=== PATIENT | female | born 1980 | race Caucasian/White ===

== ENCOUNTER 2016-09-18 18:31 | Emergency (ER) | payer MEDICAID ==
--- NOTE | 2016-09-18 20:21 | ERNOTE ---
Medical Problem HPI - General Chief Complaint: General Assessment Time Seen by Provider: 09/18/16 20:11 Source: patient Exam Limitations: no limitations - Immun/Allergies/Home Medications Immunizations: IMMUNIZATION HX Immunizations Up to Date Yes History of Influenza Vaccine No Hx Pneumococcal Vaccination No Allergies/Adverse Reactions: Allergies morphine Adverse Reaction (Mild, Verified 09/18/16 18:48) Nausea - History of Present History Narrative: Pt states she awoke with swollen feet this morning. She was up and around and there was some improvement. Later in the day it seemed to worsen again Timing: getting worse Severity: moderate Modifying Factors - (Improves): Present: movement Modifying Factors - (Worsens): Present: immobilization Review of Systems - Review of Systems Constitutional: Absent: recent illness, fever, chills, weakness, fatigue EYE: Present: no symptoms reported ENT: Present: no symptoms reported Respiratory: Absent: shortness of breath, cough Cardiology: Absent: chest pain, palpitations Gastrointestinal/Abdominal: Present: no symptoms reported Genitourinary: Present: no symptoms reported Musculoskeletal: Present: no symptoms reported Skin: Present: change in color - feet are "turning purple" Neurological: Present: other - off balance that she attributes to swelling in her feet Endocrine: Absent: excessive sweating, flushing Hematologic/Lymphatic: Present: no symptoms reported Psych: Present: no symptoms reported - Patient's Past Medical History Patient History - Medical: Diabetes Type 2 Insulin Dependent Patient History - Cardiac/Respiratory: No pertinent hx Patient History - Cancer: No Hx of Cancer Patient History - Surgical Procedures: No surgical history Patient History - Other: None LMP (females 10-50): last week LMP (Calendar): 07/11/15 - Family History mom Family History - Medical: No pertinent hx dad Family History - Medical: No pertinent hx - Social History Living Situations: home Psych History: No pertinent hx Smoking Status: Current every day smoker Alcohol Use: occasionally Drug Use: none - Immunizations Immunizations Up to Date: Yes Hx Pneumococcal Vaccination: No History of Influenza Vaccine: No Physical Exam - Physical Exam General Appearance: Present: wd/wn, alert, no apparent distress Eye Exam: Normal inspection: bilateral, PERRL: bilateral Ears, Nose, Throat: Present: normal ENT inspection Neck: Present: normal inspection, nontender Respiratory: Present: no respiratory distress, normal breath sounds, no accessory muscle use, chest nontender, lungs clear Cardiovascular/Chest: Present: regular rate, rhythm, no murmur, normal peripheral pulses Extremity Exam: Present: extremity edema - trace edema bilateral LE, slightly mottled. Neurological Exam: Present: alert, oriented, normal mood/affect, no motor/ sensory deficits Skin Exam: Present: other - skin slightly mottled in B/L LE. cap refill slightly delayed 3-4 seconds Lymphatic Exam: Present: no adenopathy ED Progress - Results and Orders Patient's Lab Results:: I have reviewed the patient's lab results. Results and Orders: Laboratory Tests 09/18/16 09/18/16 20:25 20:25 WBC 5.8 Hgb 11.5 L Hct 37.1 Plt Count 179 Sodium 140 Potassium 3.5 Chloride 103 Carbon Dioxide 29.0 Anion Gap 11.5 BUN 15 Creatinine 0.81 BUN/Creatinine Ratio 18.5 Random Glucose 81 Calcium 9.1 TSH 0.578 Free T4 1.37 - Vital Signs Patient's Vital Signs:: I have reviewed the patient's vital signs. Vital Signs: Vital Signs 09/18/16 18:44 Temperature 36.8 C Pulse Rate 80 Respiratory 16 Rate Blood Pressure 141/91 O2 Sat by Pulse 96 Oximetry - Progress/Reassessment Chief Complaint: General Assessment Progress:: Unchanged Departure - Departure Clinical Impression: Edema Qualifiers: Edema type: localized Qualified Code(s): R60.0 - Localized edema Disposition: Home self-care Condition: Good Instructions: Peripheral Edema Additional Instructions: See your primary care provider if not improving
[2016-09-18 20:31] LABS: Hematocrit 37.1 % (37.0-47.0); Hemoglobin 11.5 gm/dL (12.5-16.0); Mean Cell Volume 76.8 fl (78-100); Mean Corpuscular Hemoglobin 23.8 pg (27-31); Mean Platelet Volume 9.2 fl (6.0-9.5); Neutrophil # 2.6 K/mm3 (1.3-6.0); Neutrophil % 44.1 % (42-75.0); Platelet Count 179 K/mm3 (150-450); Red Blood Count 4.83 M/mm3 (4.2-5.4); Red Cell Distribution Width 14.6 % (11.5-14.0); White Blood Count 5.8 K/mm3 (4.0-10.5)
[2016-09-18 20:53] LABS: Anion Gap 11.5 mmol/L (6.8-13.8); BUN/Creatinine Ratio 18.5 (9.0-21.6); Calcium * 9.1 mg/dL (7.9-10.9); Estimated Creat Clear 96.1; Potassium 3.5 mmol/L (3.4-4.6); T4 Free * 1.37 ng/dL (0.76-1.46); TSH * 0.578 uIU/mL (0.358-3.74)
--- OUTSIDE RECORDS SUMMARY | 2016-09-18 21:11 | XMS REPORT | Continuity of Care Document ---
:1980 Author Organization [facility] ([facility]) Address [address] [place] [address] Phone [phone] Care Team Providers Name Role Phone Unavailable Primary Care Provider Unavailable Source Comments This disclosure is being made pursuant to the Care Everywhere program, applicable federal and state laws, and may not contain all informaitonavailable regarding this patient.[facility] ([facility]) Active Allergies and Adverse Reactions Not on File Current Medications Not on file Active Problems Not on file Social History Tobacco Use Types Packs/Day Years Used Date Never Assessed Last Filed Vital Signs Vital Sign Reading Time Taken Blood Pressure - - Pulse - - Temperature - - Respiratory Rate - - Height 1.702 m (5' 7") 08/25/2004 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
[2016-09-18 21:21] VITALS: BP 122/81
== END 2016-09-18 21:19 | disposition home or self-care (01) ==
LOC: ER 18:31
DX: R60.0 Localized edema (principal); Z72.0 Tobacco use

== ENCOUNTER 2016-12-08 15:28 | Emergency (ER) | payer MEDICAID ==
[2016-12-08 15:40] VITALS: BP 138/78
--- OUTSIDE RECORDS SUMMARY | 2016-12-08 16:51 | XMS REPORT | Continuity of Care Document ---
:1980 Author Organization [facility] ([facility]) Address [address] [place] [address] Phone [phone] Care Team Providers Name Role Phone Unavailable Primary Care Provider Unavailable Source Comments This disclosure is being made pursuant to the Care Everywhere program, applicable federal and state laws, and may not contain all informaitonavailable regarding this patient.[facility] ([facility]) Active Allergies and Adverse Reactions Not on File Current Medications Not on file Active Problems Not on file Social History Tobacco Use Types Packs/Day Years Used Date Never Assessed Last Filed Vital Signs Vital Sign Reading Time Taken Blood Pressure - - Pulse - - Temperature - - Respiratory Rate - - Height 1.702 m (5' 7") 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
--- NOTE | 2016-12-08 17:05 | ERNOTE ---
Integumentary HPI - Narrative Date of Service: 12/08/16 - General Presenting Symptoms: rash Time Seen by Provider: 12/08/16 16:41 Source: patient, RN notes reviewed Exam Limitations: no limitations - Immun/Allergies/Home Medications Immunizations: IMMUNIZATION HX Immunizations Up to Date Yes History of Influenza Vaccine No Hx Pneumococcal Vaccination No Allergies/Adverse Reactions: Allergies Allergy/AdvReac Type Severity Reaction Status Date / Time morphine AdvReac Mild Nausea Verified 12/08/16 15:40 Home Medications: HOME MEDICATIONS Ibuprofen [Motrin] 600 mg PO Q6H PRN #40 tab 12/08/16 [Last Taken Unknown] hydrOXYzine PAMOATE [Vistaril] 25 mg PO Q4H PRN #20 cap 12/08/16 [Last Taken Unknown] - History of Present Illness Narrative: Veena is a 35-year-old female ambulatory to the emergency department for a rash on her upper abdomen that began 2 days ago and has been spreading. The rash has been very itchy. She also reports a sore throat that began today. She has not been using anything on the rash. It has also spread to her anterior thighs. She also reports severe cramping with her periods. She has been on hormonal contraceptives for this in the past, but is not currently on anything. She has not had a routine gynecologic exam in several years. Date (Duration): 12/06/16 Location: Reports: torso, lower extremity Quality: Reports: itching Severity: moderate Exposure: Reports: no cause identified Associated Symptoms: Reports: rash, sore throat, malaise. Denies: blisters, hives, swelling/mass/lumps, edema, fever, headache, nasal congestion Prior Treatment: Denies: recently seen, currently on antibiotics Review of Systems - Review of Systems Constitutional: Absent: recent illness, fever, chills EYE: Present: no symptoms reported ENT: Present: sore throat. Absent: ear pain, nose congestion, throat swelling Respiratory: Absent: shortness of breath, cough Cardiology: Present: no symptoms reported Gastrointestinal/Abdominal: Absent: nausea, vomiting, abdominal pain Genitourinary: Absent: frequency, dysuria Musculoskeletal: Absent: muscle pain, joint pain Skin: Present: rash. Absent: lumps Neurological: Absent: headache, dizziness/light-headedness Endocrine: Present: no symptoms reported Hematologic/Lymphatic: Present: no symptoms reported Psych: Present: no symptoms reported - Patient's Past Medical History Patient History - Medical: No pertinent hx Patient History - Cardiac/Respiratory: No pertinent hx Patient History - Cancer: No Hx of Cancer Patient History - Surgical Procedures: Cholecystectomy, Patient History - Other: None LMP (females 10-50): now LMP (Calendar): 12/08/16 - Family History mom Family History - Medical: No pertinent hx dad Family History - Medical: No pertinent hx - Social History Living Situations: home Psych History: No pertinent hx Smoking Status: Current every day smoker Alcohol Use: occasionally Drug Use: none - Immunizations Immunizations Up to Date: Yes Hx Pneumococcal Vaccination: No History of Influenza Vaccine: No Physical Exam - Physical Exam General Appearance: Present: wd/wn, alert, no apparent distress Eye Exam: Normal inspection: bilateral Ears, Nose, Throat: Present: normal ENT inspection. Absent: pharyngeal erythema , pharyngeal swelling Neck: Present: normal inspection, nontender, supple Respiratory: Present: no respiratory distress, normal breath sounds, no accessory muscle use, lungs clear Cardiovascular/Chest: Present: regular rate, rhythm, no murmur, normal peripheral pulses Extremity Exam: Present: normal inspection, normal range of motion, no edema Neurological Exam: Present: alert, oriented, normal mood/affect, no motor/ sensory deficits Skin Exam: Present: normal color, warm/dry, skin rash - erythematous maculopapular eruption to upper abdomen, anterior proximal thighs, and a few scattered lesions on neck Lymphatic Exam: Present: no adenopathy ED Progress - Results and Orders Patient's Lab Results:: I have reviewed the patient's lab results. - Vital Signs Patient's Vital Signs:: I have reviewed the patient's vital signs. 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
== END 2016-12-08 17:08 | disposition home or self-care (01) ==
LOC: ER 15:28
DX: L42 Pityriasis rosea (principal); N94.6 Dysmenorrhea, unspecified

== ENCOUNTER 2017-02-23 15:58 | Emergency (ER) | payer MEDICAID ==
--- NOTE | 2017-02-23 16:24 | ERNOTE ---
ENT HPI Date of Service: 02/23/17 Presenting Symptoms: dental pain Time Seen by Provider: 02/23/17 16:12 Source: patient Exam Limitations: no limitations - Immun/Allergies/Home Medications Immunizations: IMMUNIZATION HX Immunizations Up to Date Yes History of Influenza Vaccine Yes Hx Pneumococcal Vaccination No Allergies/Adverse Reactions: Allergies Allergy/AdvReac Type Severity Reaction Status Date / Time morphine AdvReac Mild Nausea Verified 02/23/17 16:10 Home Medications: HOME MEDICATIONS Cephalexin Monohydrate [Keflex] 500 mg PO QID #40 cap 02/23/17 [Last Taken Unknown] traMADol HCL [Ultram] 50 mg PO QID #30 tablet 02/23/17 [Last Taken Unknown] - History of Present Illness Narrative: patient c/o dental pain, worse for last several days, has wide spread dental decay Severity: Present: moderate ENT Location: Present: dental Prearrival Treatment: Present: no prearrival treatment Modifying Factors - Improves: Reports: nothing Modifying Factors - Worsens: Reports: nothing Associated Symptoms - ENT: Reports: facial pain/swelling, tooth pain Prior Treament: Reports: other - none Review of Systems - Review of Systems Constitutional: Present: malaise EYE: Present: no symptoms reported ENT: Present: See HPI, other - wide spread dentall decay Respiratory: Present: no symptoms reported Cardiology: Present: no symptoms reported Gastrointestinal/Abdominal: Present: no symptoms reported Genitourinary: Present: no symptoms reported Musculoskeletal: Present: no symptoms reported Skin: Present: no symptoms reported Neurological: Present: no symptoms reported Endocrine: Present: no symptoms reported Hematologic/Lymphatic: Present: no symptoms reported Psych: Present: no symptoms reported All Other Systems: All systems neg except as marked - Patient's Past Medical History Patient History - Medical: No pertinent hx Patient History - Cardiac/Respiratory: No pertinent hx Patient History - Cancer: No Hx of Cancer Patient History - Surgical Procedures: Cholecystectomy, Patient History - Other: None LMP (females 10-50): unknown LMP (Calendar): 12/08/16 - Family History Family History:: no untoward family reactions to anesthesia, no familial bleeding tendencies - Family History mom Family History - Medical: No pertinent hx Family History - Cancer: No pertinent family hx dad Family History - Medical: No pertinent hx Family History - Cardiac/Respiratory: No pertinent hx Family History - Cancer: No pertinent family hx - Social History Living Situations: home Abuse History: No History of abuse Psych History: No pertinent hx Does anyone smoke in the home?: Yes Smoking Status: Current every day smoker Have you smoked in the past 12 months: Yes Do you dip or chew tobacco: No Patient requests Smoking Cessation Consult: No Initiate information on Smoking Cessation: No Alcohol Use: occasionally Drug Use: none - Immunizations Immunizations Up to Date: Yes Hx Pneumococcal Vaccination: No History of Influenza Vaccine: Yes Physical Exam - Physical Exam General Appearance: Present: alert, mild distress Head Exam: Present: normal inspection, no evidence of injury Eye Exam: Normal inspection: bilateral, PERRL: bilateral, EOMI: bilateral Ears, Nose, Throat: Present: other - wide spread dental decay Neck: Present: normal inspection Respiratory: Present: no respiratory distress, normal breath sounds, no accessory muscle use, chest nontender Cardiovascular/Chest: Present: regular rate, rhythm, no murmur, normal peripheral pulses Peripheral Pulses: N=norm/S=strong/W=weak/B=bound/A=absent: Carotid (R): Normal , Carotid (L): Normal, Radial (R): Normal, Radial (L): Normal, Femoral (R): Normal, Femoral (L): Normal, Dorsalis-pedis (R): Normal, Dorsalis-pedis (L): Normal Gastrointestinal/Abdominal: Present: normal bowel sounds, nontender, nondistended, soft, no organomegaly Back Exam: Present: normal inspection, normal range of motion, no CVA tenderness , no vertebral tenderness Extremity Exam: Present: normal inspection, non-tender, normal range of motion, no edema Neurological Exam: Present: alert, oriented, normal mood/affect, no motor/ sensory deficits DTR: N=norm/NB=norm/brisk/A=abs/DD=dull/dimin/HC=hyperactive: Bicep (R): Normal , Bicep (L): Normal, Tricep (R): Normal, Tricep (L): Normal, Knee (R): Normal, Knee (L): Normal, Ankle (R): Normal, Ankle (L): Normal Skin Exam: Present: normal color, warm/dry Lymphatic Exam: Present: no adenopathy ED Progress - Vital Signs Patient's Vital Signs:: I have reviewed the patient's vital signs. Vital Signs: Vital Signs 02/23/17 16:07 Temperature 37.0 C Pulse Rate 84 Respiratory 15 Rate Blood Pressure 144/87 O2 Sat by Pulse 100 Oximetry - Progress/Reassessment Chief Complaint: Dental Problem Progress:: Unchanged - Transfer of Care Expected Disposition: Discharge Departure Clinical Impression: Dental caries extending into pulp - Departure Disposition: Home self-care Condition: Fair Instructions: Dental Caries Prescriptions: Cephalexin Monohydrate [Keflex] 500 mg PO QID #40 cap traMADol HCL [Ultram] 50 mg PO QID #30 tablet
[2017-02-23 16:40] VITALS: BP 144/87
== END 2017-02-23 16:51 | disposition home or self-care (01) ==
LOC: ER 15:58
DX: K02.9 Dental caries, unspecified (principal); F17.200 Nicotine dependence, unspecified, uncomplicated